=== PATIENT | female | born 1965 | race Caucasian/White ===

== ENCOUNTER 2017-08-07 12:12 | Emergency (ER) | payer OTHER ==
[2017-08-07 12:32] VITALS: BP 117/83; PULSE 89; TEMP 98.1; BMI 31.8
[2017-08-07] MEDS ORDERED: CEFTRIAXONE 1 GM in DEXTROSE 5%-WATER - 50 ML IVPB ONE (15:14)
[2017-08-07] MEDS ORDERED: SODIUM CHLORIDE 1,000 ML IV STA (15:14)
[2017-08-07] MEDS ORDERED: KETOROLAC TROMETHAMINE 30 MG/1 ML VIAL IVPUSH ONE (15:15)
[2017-08-07] MEDS ORDERED: CEFTRIAXONE 1 GM/50 ML BAG ONE (15:25)
[2017-08-07] MEDS ORDERED: KETOROLAC TROMETHAMINE 30 MG/1 ML VIAL ONE (15:25)
--- NOTE | 2017-08-07 15:49 | PDOC ---
History of Present Illness - General Chief Complaint: Urinary Problem Stated Complaint: BACK PAIN Time Seen by Provider: 08/07/17 13:30 History Source: Patient Exam Limitations: No Limitations - History of Present Illness Travel History: No Initial Comments: 08/07/17 13:58 52-year-old female presents to the ED with evaluation of left-sided back pain. Patient states had urinary complaints or week ago and was placed on Cipro this past Monday by a a local clinic provider. Patient states received a call today that she needed go to the ER because the medication she was on was not sensitive and appears that she might have pyelonephritis. Patient denies fever, chills and denies copious amount of blood noted in the urine. Patient denies history of renal colic but states has had UTIs before that responded to antibiotic tablets. Patient denies nausea, weakness, change in appetite but states pain is worsened with movement Timing/Duration: reports: getting worse Quality: reports: moderate, sharpness, stabbing Abdominal Pain Onset Location: reports: flank (left) Pain Radiation: reports: LUQ, LLQ, back Activities at Onset: reports: none Aggravating Factors: improves with: Movement Alleviating Factors: improves with: None Past History - Past Medical History Allergies/Adverse Reactions: Allergies Allergy/AdvReac Type Severity Reaction Status Date / Time No Known Allergies Allergy Verified 08/07/17 12:28 Home Medications: Ambulatory Orders Albuterol 0.083% Nebulizer Radha [Ventolin 0.083%] 1 neb NEB Q4H PRN 04/28/12 Meclizine HCl [Antivert -] 25 mg PO TID #21 tablet 03/17/16 Asthma: Yes COPD: No - Suicide/Smoking/Psychosocial Hx Smoking Status: No Smoking History: Never smoked Have you smoked in the past 12 months: Yes Number of Cigarettes Smoked Daily: 4 Information on smoking cessation initiated: No Hx Alcohol Use: Yes (SOCIAL) Drug/Substance Use Hx: No Substance Use Type: None Patient Lives Alone: No Lives with/in: spouse/SO Review of Systems - Review of Systems Able to Perform ROS?: Yes Constitutional: No: Symptoms Reported HEENTM: No: Symptoms Reported Respiratory: No: Symptoms reported Cardiac (ROS): No: Symptoms Reported ABD/GI: Yes: Nausea, Abdominal cramping : Yes: Frequency, Flank Pain Musculoskeletal: Yes: Back Pain Integumentary: No: Symptoms Reported Neurological: No: Symptoms reported Hematologic/Lymphatic: No: Symptoms Reported *Physical Exam - Vital Signs Last Vital Signs Temp Pulse Resp BP Pulse Ox 98.1 F 89 19 117/83 98 08/07/17 12:29 08/07/17 12:29 08/07/17 12:29 08/07/17 12:29 08/07/17 12:29 - Physical Exam General Appearance: Yes: Nourished, Appropriately Dressed. No: Apparent Distress HEENT: negative: Pale Conjunctivae Respiratory/Chest: positive: Lungs Clear, Normal Breath Sounds. negative: Respiratory Distress, Accessory Muscle Use Cardiovascular: positive: Regular Rhythm, Regular Rate. negative: Murmur Gastrointestinal/Abdominal: positive: Normal Bowel Sounds, Soft, Tenderness ( left flank). negative: Distended, Guarding, Rebound Musculoskeletal: positive: CVA Tenderness (L) Extremity: positive: Normal Capillary Refill. negative: Pedal Edema Integumentary: positive: Normal Color, Warm, Moist Neurologic: positive: Motor Strength 5/5 (ambulatory) Moderate Sedation - Procedure Monitoring Vital Signs: Vital Signs Temp Pulse Resp BP Pulse Ox 98.1 F 89 19 117/83 98 08/07/17 12:29 08/07/17 12:29 08/07/17 12:29 08/07/17 12:29 08/07/17 12:29 ED Treatment Course - LABORATORY CBC & Chemistry Diagram: 08/07/17 16:00 08/07/17 16:00 - RADIOLOGY Radiology Studies Ordered: Category Date Time Status SPIRAL- RENAL-STONE CT [CT] Stat CT Scan 08/07/17 15:14 Ordered Medical Decision Making - Medical Decision Making 08/07/17 17:13 Patient with recent UTI currently on Cipro now complaining of kidney and back pain suggestive polynephritis. Pt ordered for labs, IV fluids IV ceftriaxone along with CT spiral secondary to cVA tenderness. 08/07/17 17:19 Laboratory Tests 08/07/17 08/07/17 16:00 16:15 WBC 9.4 Hgb 13.7 Hct 41.4 Neutrophils % 72.5 Ur Leukocyte Esterase 2+ H Urine WBC (Auto) 7 Urine RBC (Auto) 3 08/07/17 18:49 Laboratory Tests 03/16/16 08/07/17 08/07/17 21:41 16:00 16:00 Sodium 140 Potassium 3.8 Chloride 108 H Carbon Dioxide 26 Anion Gap 6 L BUN 22 H Creatinine 0.8 D 1.3 H Creat Clearance w eGFR 43.36 Random Glucose 109 H Lactic Acid 1.2 Calcium 9.3 Total Bilirubin 0.9 D AST 22 Alkaline Phosphatase 69 Total Protein 7.[address] shows nonspecific left perirenal soft tissue stranding due to recently passed calculus versus other etiologies such as pyelonephritis or renal vein thrombosis. Clinically an additional imaging using contrast enhanced CT may be performed to include delaying venous phase imaging. Patient will be discharged home on Bactrim. *DC/Admit/Observation/Transfer Diagnosis at time of Disposition: Pyelonephritis - Discharge Dispostion Disposition: HOME Condition at time of disposition: Good - Referrals Referrals: David Reyes MD [Primary Care Provider] - - Patient Instructions Printed Discharge Instructions: DI for Kidney Infection Additional Instructions: You need to drink at least 2 L of water on a daily basis and start antibiotics tonight. Return to ED if your symptoms worsen despite above recommendations. Please complete antibiotics. - Post Discharge Activity
[2017-08-07 16:26] LABS: BASO % 0.4 % (0-2.0); EOS % 1.1 % (0-4.5); HEMATOCRIT 41.4 % (32.4-45.2); HEMOGLOBIN 13.7 GM/dL (10.7-15.3); LYMPH % 17.3 % (8-40); MCH 31.8 pg (25.7-33.7); MCHC 33.2 g/dl (32.0-36.0); MEAN CELL VOLUME 95.7 fl (80-96); MEAN PLT VOLUME 7.7 fl (7.5-11.1); MONO % 8.7 % (3.8-10.2); NEUT % 72.5 % (42.8-82.8); PLATELET COUNT 300 K/MM3 (134-434); RBC 4.32 M/mm3 (3.60-5.2); RDW 14.7 % (11.6-15.6); WHITE BLOOD COUNT 9.4 K/mm3 (4.0-10.0)
[2017-08-07 16:48] LABS: URINE APPEARANCE CLEAR; URINE BILIRUBIN NEGATIVE (<2.0 mg/dL); URINE COLOR STRAW; URINE GLUCOSE (UA) NEGATIVE (NEGATIVE); URINE KETONE NEGATIVE (NEGATIVE); URINE LEUK ESTERASE 2+ (NEGATIVE); URINE NITRITE NEGATIVE (NEGATIVE); URINE PROTEIN NEGATIVE (NEGATIVE); URINE UROBILINOGEN NEGATIVE mg/dL (0.2-1.0)
[2017-08-07 16:53] LABS: EPI CELLS RARE /HPF (FEW); URINE MUCUS RARE
[2017-08-07 16:55] LABS: ALK PHOS 69 U/L (45-117); ANION GAP 6 (8-16); BILIRUBIN,TOTAL 0.9 mg/dL (0.2-1.0); BLOOD UREA NITROGEN 22 mg/dL (7-18); CALCIUM 9.3 mg/dL (8.5-10.1); CHLORIDE 108 mmol/L (98-107); CO2 26 mmol/L (21-32); CREATININE 1.3 mg/dL (0.55-1.02); GLUCOSE,RANDOM 109 mg/dL (74-106); POTASSIUM 3.8 mmol/L (3.5-5.1); SGOT/AST 22 U/L (15-37); SGPT/ALT 28 U/L (12-78); SODIUM 140 mmol/L (136-145); TOT PROT 7.7 g/dl (6.4-8.2)
== END 2017-08-07 19:00 | disposition home or self-care (01) ==
LOC: JER 12:12
PROC: 3E03329 Introduction of Other Anti-infective into Peripheral Vein, Percutaneous Approach (ICD-10-PCS; principal; 2017-08-07)
PROC: 3E0333Z Introduction of Anti-inflammatory into Peripheral Vein, Percutaneous Approach (ICD-10-PCS; 2017-08-07)
DX: N12 Tubulo-interstitial nephritis, not specified as acute or chronic (principal)
CPT/HCPCS: 36415; 74176; 80053; 81003; 81015; 83605; 85025; 87086; 96365; 96375; 99281-25; J7030

== ENCOUNTER 2018-04-18 14:16 | Emergency (ER) | payer OTHER ==
[2018-04-18 14:23] VITALS: BP 126/72; PULSE 73; TEMP 98.4; BMI 31.8
--- NOTE | 2018-04-18 14:25 | PDOC ---
Rapid Medical Evaluation Chief Complaint: Injury Time Seen by Provider: 04/18/18 14:22 Medical Evaluation: Allergies Allergy/AdvReac Type Severity Reaction Status Date / Time No Known Allergies Allergy Verified 08/07/17 12:28 Vital Signs Temp Pulse Resp BP Pulse Ox 98.4 F 73 16 126/72 100 04/18/18 14:20 04/18/18 14:20 04/18/18 14:20 04/18/18 14:20 04/18/18 14:20 04/18/18 14:23 I have performed a brief in person evaluation of this patient. The patient presents with the CC of: left ankle pain HPI: pt is a 53 YO who states she twisted her left ankle 3 weeks ago. Pain is a 3/10. PE: Skin: Clear Lungs: Clear Heart: RRR Abd: non tender MS: Moves all extremities without difficulty. pain upon palpation to the anterior aspect of the left ankle/foot. No deformity. Neuro: Alert and oriented Psych: Appropriate affect I have ordered the following: left ankle/foot xray Pt will proceed to the [facility] for further evaluation. Discharge Disposition - Diagnosis Ankle sprain Qualifiers: Encounter type: initial encounter Laterality: left - Discharge Dispostion Condition at time of disposition: Stable - Referrals - Patient Instructions - Post Discharge Activity
--- NOTE | 2018-04-18 15:08 | PDOC ---
History of Present Illness - General Chief Complaint: Injury Stated Complaint: SWELLING LT ANKLE Time Seen by Provider: 04/18/18 14:22 - History of Present Illness Initial Comments: 04/18/18 15:05 53-year-old female without comorbidities presents for evaluation of left ankle pain. She describes a dorsiflexion-type injury which occurred about 3 weeks ago while moving some boxes. She points to the anterior joint line of the left ankle as the area of her discomfort. Past History - Past Medical History Allergies/Adverse Reactions: Allergies Allergy/AdvReac Type Severity Reaction Status Date / Time No Known Allergies Allergy Verified 08/07/17 12:28 Home Medications: Ambulatory Orders NK [No Known Home Medication] 04/18/18 Asthma: Yes COPD: No Liver Disease: No - Immunization History Immunization Up to Date: No - Suicide/Smoking/Psychosocial Hx Smoking Status: No Smoking History: Current every day smoker Have you smoked in the past 12 months: No Number of Cigarettes Smoked Daily: 4 Information on smoking cessation initiated: No Hx Alcohol Use: No Drug/Substance Use Hx: No Substance Use Type: None Review of Systems - Review of Systems Musculoskeletal: Yes: Joint Pain *Physical Exam - Vital Signs Last Vital Signs Temp Pulse Resp BP Pulse Ox 98.4 F 73 16 126/72 100 04/18/18 14:20 04/18/18 14:20 04/18/18 14:20 04/18/18 14:20 04/18/18 14:20 - Physical Exam Comments: 04/18/18 15:05 Left ankle skin color and temperature are normal. Range of motion is full with mild discomfort at terminal dorsiflexion at the anterior joint line. There is no tenderness about the knee proximal fibula or along its distal coarse mild tenderness about the medial malleolus no tenderness at the lateral malleolus ATFL base of the fifth metatarsal or navicular. Is tenderness over the syndesmotic joint no gross sensorimotor deficits or indication of any instability. She stable neurovascularly intact Moderate Sedation - Procedure Monitoring Vital Signs: Procedure Monitoring Vital Signs Temperature 98.4 F 04/18/18 14:20 Pulse Rate 73 04/18/18 14:20 Respiratory Rate 16 04/18/18 14:20 Blood Pressure 126/72 04/18/18 14:20 O2 Sat by Pulse Oximetry (%) 100 04/18/18 14:20 Medical Decision Making - Medical Decision Making 04/18/18 15:06 X-ray show no evidence of fracture trauma or destructive process the mortise is intact, there is good overlap on the AP view of the tib-fib joint 04/18/18 15:06 This is most likely a syndesmotic sprain. Weight-bear as tolerated with use of crutches and the Aircast follow-up with orthopedic surgery *DC/Admit/Observation/Transfer Diagnosis at time of Disposition: Ankle sprain Qualifiers: Encounter type: initial encounter Laterality: left - Discharge Dispostion Disposition: HOME Condition at time of disposition: Stable Decision to Admit order: No - Referrals Referrals: David Reyes MD [Primary Care Provider] - Silvino Dougherty DO [Staff Physician] - - Patient Instructions Printed Discharge Instructions: DI for Ankle Sprain, Ankle Sprain Additional Instructions: He may weight-bear as tolerated with the use of crutches and the Aircast. He may remove the Aircast for gentle range of motion and hygiene. Return to the emergency room should symptoms worsen or go unresolved and follow-up with orthopedic surgery in 2-3 days for further evaluation and treatment options. Tylenol and Motrin as directed for pain. - Post Discharge Activity Forms/Work/School Notes: Back to Work
== END 2018-04-18 15:22 | disposition home or self-care (01) ==
LOC: JERFT 14:16
PROC: 2W3RX1Z Immobilization of Left Lower Leg using Splint (ICD-10-PCS; principal; 2018-04-18)
DX: S93.402A Sprain of unspecified ligament of left ankle, initial encounter (principal); X50.0XXA Overexertion from strenuous movement or load, initial encounter; Y93.89 Activity, other specified; Y92.9 Unspecified place or not applicable
CPT/HCPCS: 73610-TC-LT-FY; 73630-TC-LT; 99281-25